=== PATIENT | male | born 1970 ===

== ENCOUNTER 2024-09-13 11:20 | Emergency (ER) | payer SELFPAY ==
[2024-09-13 11:23] VITALS: BP 146/90; PULSE 66; RESP 18; TEMP 36.7; O2SAT 95; BMI 21.3
--- NOTE | 2024-09-13 11:37 | ED_ITS ---
HPI - Extremity Problem 2 General: Chief complaint: Extremity Problem,Nontraumatic Stated complaint: muscle spasms Time Seen by Provider: 09/13/24 11:24 History of Present Illness: 53-year-old male presents the emergency department by EMS. He was at [employer] today and got some muscle spasms in his right calf. He has been having intermittent muscle spasms in both legs for about 1 month. He also states that sometimes his legs tremor. Patient endorses a relevant past medical history of surgery to the left hip and left knee. He had an injury in 2008 of his left knee and has been wearing a hinged knee brace ever since. He has muscle wasting in this area (likely related to chronic use of the knee brace). He does not endorse any sensory changes in his lower extremities. He reports that the event that actually got him here today is the fact that he was stepping over the threshold from the hallway into an elevator and his leg gave out and he fell to his knees. He reports he did not sustain any injury. He does not endorse any trouble with bowel or bladder, fever or chills, immunocompromise, back pain, neurogenic claudication symptoms, temperature changes in the skin, rashes or wounds. Currently patient is endorsing no symptoms. Patient reportedly uses a wheelchair and or a walker at his baseline. He has no known reported neuropathy, spinal stenosis, demyelinating condition. Related Data Home Medications Medication Instructions Recorded Confirmed fluticasone propionate 50 1 spray intranasal DAILY 09/13/24 09/13/24 mcg/actuation nasal spray,suspension loratadine 10 mg tablet 10 mg PO DAILY 09/13/24 09/13/24 medroxyprogesterone 10 mg tablet 10 mg PO TID 09/13/24 09/13/24 paroxetine HCl 30 mg tablet 30 mg PO DAILY 09/13/24 09/13/24 trazodone 100 mg tablet 100 mg PO DAILY 09/13/24 09/13/24 Review of Systems 2 General: Reports: 10 or more systems reviewed and unremarkable except in HPI and below Physical Exam 2 Narrative: EXAM NARRATIVE: Patient is happy, conversational, no acute distress. Examination of his bilateral lower extremities reveals relatively diminished muscle bulk, particularly in the left calf and thigh. He has a well-worn left-sided hinged knee brace that he has worn daily for more than 10 years. Upon removing the knee brace, his left knee exam is unremarkable other than the decreased muscle bulking around it. He has normal ligamentous and tendon exams. There are no effusions redness or warmth. He has normal passive range of motion of his right hip, right knee, right ankle and foot. He has normal passive range of motion of his left hip, left knee, left ankle and foot. He has very brisk patellar reflexes bilaterally but they are symmetric. He also has brisk Achilles reflexes. He has normal sensation to touch in both feet and can plantar and dorsiflex his feet against resistance. His DP pulses 2+ bilaterally. He has no abnormal swelling, effusions, redness or rashes. Pelvis is stable. The spine is nontender throughout the thoracic and lumbar regions. Straight leg raise is negative bilaterally. Const: COMMON NORMALS: no limitations, alert and well nourished EXAM LIMITATIONS: no altered mental status HENMT: COMMON NORMALS: normocephalic, atraumatic and external ears normal H EAD & SCALP: normocephalic and atraumatic EXTERNAL EAR: Yes external ears normal MOUTH: no muffled voice Neck/C-Spine: GENERAL: Yes normal visual inspection and Yes trachea midline Resp: COMMON NORMALS: normal respiratory effort, No use of accessory muscles and clear to auscultation bilaterally AUSCULTATION: clear to auscultation bilaterally Neuro: COMMON NORMALS: moves all extremities, no focal motor deficits and no sensory deficits noted SENSORIUM/ORIENTATION: Yes alert SPEECH: speech normal Psych: COMMON NORMALS: mental status grossly normal, Normal thought process present, cooperative, normal affect and speech normal SPEECH: Yes normal speech THOUGHT PROCESS: Normal thought process present Skin: COMMON NORMALS: no rashes or lesions noted, turgor normal and no jaundice GENERAL SKIN EXAM: no rashes or lesions noted and turgor normal Course 2 Vital Signs: Vital signs: Vital Signs Temperature 98.1 F 09/13/24 11:23 Pulse Rate 66 09/13/24 11:23 Respiratory Rate 18 09/13/24 11:23 Blood Pressure 146/90 09/13/24 11:23 Pulse Oximetry 95 09/13/24 11:23 Oxygen Delivery Me thod Room Air 09/13/24 11:23 MDM - Extremity (Nontraumatic) Medical Decision Making 1. Intermittent muscle cramps. We will check his magnesium, potassium, sodium, chloride, calcium, hemoglobin. 2. The patient's leg giving out on him today is probably secondary to muscle wasting. I am not sure that the patient requires wearing a knee brace daily. His quadricep muscles are both pretty small and I am wondering if this is contributing to his knees feeling like they are going to buckle. I am going to recommend follow-up with PCP to determine whether the knee brace can be removed and whether the patient needs to go to physical therapy. There is no indication for imaging today as there was no traumatic injury or concerning physical exam findings other than what was noted above. Update 12:15 PM I considered spinal stenosis, demyelinating disease, neuropathy, myopathies, and other conditions. However, this appears to be chronic and progressive. I do not think these are a emergency department workup. The patient's electrolytes, kidney function, blood sugar, acid-base status are normal. He can be discharge and follow-up with PCP for outpatient workup Lab Data 09/13/24 11:39 09/13/24 11:39 Laboratory Results WBC 4.73 10^3/uL (3.29-11.43) 09/13/24 11:39 RBC 4.53 10^6/uL (3.85-5.65) 09/13/24 11:39 Hgb 14.00 g/dL (11.27-16.99) 09/13/24 11:39 Hct 41.5 % (37-53) 09/13/24 11:39 MCV 91.6 fl (82-101) 09/13/24 11:39 MCH 30.9 pg (27-33) 09/13/24 11:39 MCHC 33.7 g/dL (30-55) 09/13/24 11:39 RDW 12.4 % (12.1-15.1) 09/13/24 11:39 Plt Count 248 10^3/cmm (157-399) 09/13/24 11:39 MPV 10.1 fL (7.4-10.4) 09/13/24 11:39 Neut % (Auto) 64.0 % 09/13/24 11:39 Lymph % (Auto) 24.7 % 09/13/24 11:39 [place] % (Auto) 8.0 % 09/13/24 11:39 Eos % (Auto) 2.1 % 09/13/24 11:39 Baso % (Auto) 0.8 % 09/13/24 11:39 Neut # (Auto) 3.02 10^3/uL (1.8-7.7) 09/13/24 11:39 Lymph # (Auto) 1.2 10^3/uL (0.8-4.8) 09/13/24 11:39 [place] # (Auto) 0.4 10^3/uL (0.2-0.9) 09/13/24 11:39 Eos # (Auto) 0.1 10^3/uL (0.0-0.8) 09/13/24 11:39 Baso # (Auto) 0.0 10^3/uL (0.0-0.1) 09/13/24 11:39 Nucleated RBC % (auto) 0 % 09/13/24 11:39 Nucleated RBCs # 0.0 /100WBC 09/13/24 11:39 Sodium 139 mmol/L (136-145) 09/13/24 11:39 Potassium 4.0 mmol/L (3.5-5.1) 09/13/24 11:39 Chloride 103 mmol/L (98-107) 09/13/24 11:39 Carbon Dioxide 23 mmol/L (22-29) 09/13/24 11:39 Anion Gap 17.0 (5-19) 09/13/24 11:39 BUN 14 mg/dL (6-20) 09/13/24 11:39 Creatinine 0.9 mg/dL (0.7-1.2) 09/13/24 11:39 GFR Calculation 87.6 mL/min (90-130) L 09/13/24 11:39 Glucose 94 mg/dL (65-115) 09/13/24 11:39 Calculated Osmolality 288 mOsm/kg (285-295) 09/13/24 11:39 Calcium 9.5 mg/dL (8.5-10.5) 09/13/24 11:39 Magnesium 1.9 mg/dL (1.7-2.3) 09/13/24 11:39 Total Bilirubin 0.4 mg/dL (0.15-1.2) 09/13/24 11:39 AST 19 U/L (0-40) 09/13/24 11:39 ALT 6 U/L (0-41) 09/13/24 11:39 Alkaline Phosphatase 47 U/L (40-130) 09/13/24 11:39 Total Protein 7.6 g/dL (6.6-8.7) 09/13/24 11:39 Albumin 4.4 g/dL (3.5-5.2) 09/13/24 11:39 Globulin 3.2 g/dL (1.3-4.6) 09/13/24 11:39 No radiology studies performed this visit Discharge Plan Discharge Patient Disposition: Home Clinical Impression: Muscle atrophy of lower extremity, Knee buckling, Cramp in muscle Condition: Stable Prescriptions: No Action medroxyprogesterone 10 mg tablet 10 mg PO TID trazodone 100 mg tablet 100 mg PO DAILY paroxetine HCl 30 mg tablet 30 mg PO DAILY fluticasone propionate 50 mcg/actuation spray,suspension 1 spray INTRANASAL DAILY loratadine 10 mg Tablet 10 mg PO DAILY Discharge Orders: Discharge ED (Routine); Ordered 09/13/24 Ordered By: Tres Harvey Discharge Activity: Increase activity as tolerated Activity Restrictions/Additional Instructions: Please follow-up with your primary care doctor in 4-7 days. Things I would like you to address with them include: Outpatient imaging to evaluate for any spinal stenosis, physical therapy referral, whether or not you need to continue to use your knee brace, and repeat strength examinations of the lower extremities. Return to the emergency department if you have fever, back pain, trouble urinating or having a bowel movement, swelling, rashes, wounds or other emergent symptoms. Coding Level of Care Code ED Quality Process Auditor for Benja Weiss
[2024-09-13 11:45] LABS: Basophils % 0.8 %; Eosinophils # 0.1 10^3/uL (0.0-0.8); Eosinophils % 2.1 %; Hematocrit 41.5 % (37-53); Lymphocytes # 1.2 10^3/uL (0.8-4.8); Lymphocytes % 24.7 %; Mean Corpuscular HGB Conc 33.7 g/dL (30-55); Mean Corpuscular Hemoglobin 30.9 pg (27-33); Mean Corpuscular Volume 91.6 fl (82-101); Mean Platelet Volume 10.1 fL (7.4-10.4); Monocytes # 0.4 10^3/uL (0.2-0.9); Neutrophils # 3.02 10^3/uL (1.8-7.7); Nucleated Red Blood Cells % 0 %; Platelet Count 248 10^3/cmm (157-399); Red Blood Count 4.53 10^6/uL (3.85-5.65); Red Cell Distribution Width 12.4 % (12.1-15.1); White Blood Count 4.73 10^3/uL (3.29-11.43)
[2024-09-13 12:00] LABS: Alanine Aminotransferase 6 U/L (0-41); Albumin Level 4.4 g/dL (3.5-5.2); Alkaline Phosphatase 47 U/L (40-130); Aspartate Amino Transferase 19 U/L (0-40); Blood Urea Nitrogen 14 mg/dL (6-20); Calcium 9.5 mg/dL (8.5-10.5); Carbon Dioxide 23 mmol/L (22-29); Chloride 103 mmol/L (98-107); Creatinine Clr Calc Pharmacy 95.6775; Globulin 3.2 g/dL (1.3-4.6); Glomerular Filtration Rate 87.6 mL/min (90-130); Glucose 94 mg/dL (65-115); Magnesium 1.9 mg/dL (1.7-2.3); Osmolality Calculated 288 mOsm/kg (285-295); Sodium 139 mmol/L (136-145); Total Bilirubin 0.4 mg/dL (0.15-1.2); Total Protein 7.6 g/dL (6.6-8.7)
--- NOTE | 2024-09-13 12:43 | PC.NURSE ---
REPORT CALLED BACK TO [employer]. THIS NURSE WAS TOLD BY [employer] EMPLOYEE THAT SOMEONE WOULD BE COMING TO COO PATIENT.
[2024-09-13 12:51] VITALS: BP 153/99; PULSE 76; O2SAT 99
== END 2024-09-13 12:53 | disposition home or self-care (01) ==
PROVIDERS: Emergency Provider Emergency Medicine
DX: M62.562 Muscle wasting and atrophy, not elsewhere classified, left lower leg (principal)
CPT/HCPCS: 80053; 83735; 85025; 99283

== ENCOUNTER → 2025-04-09 08:47 | Outpatient (BNVA) | payer MEDICAID, SELFPAY | PROVIDERS: PCP Internal Medicine; Visit Provider Orthopaedic Surgery | DX: M25.552 Pain in left hip (principal); T84.84XA Pain due to internal orthopedic prosthetic devices, implants and grafts, initial encounter; Y79.3 Surgical instruments, materials and orthopedic devices (including sutures) associated with adverse incidents | CPT/HCPCS: 73502; 99204 ==

== ENCOUNTER 2025-06-03 17:32 | Emergency (ER) | payer MEDICARE, MEDICAID, SELFPAY ==
[2025-06-03 17:34] VITALS: BP 193/115; PULSE 70; RESP 18; TEMP 37.1; O2SAT 98; BMI 21.4
--- NOTE | 2025-06-03 18:36 | W.ED.EXTPRO ---
HPI - Extremity Problem General: Chief complaint: Extremity Injury, Lower Stated complaint: leg muscle spasms Time Seen by Provider: 06/03/25 17:37 History of Present Illness: 54-year-old male history of chronic hip pain after a left hip surgery, reports being evaluated by orthopedics who suspects that the lag screw from his hip surgery is causing nerve damage, eventually pending possible revision/removal of the screw however orthopedics is currently waiting for outpatient surgical records to be obtained for planning. He reports that he has a history of chronic pain to the left hip and that he gets occasional spasms but that today he had an episode of whole left leg spasming that made him lose his balance, and then generalized to his both legs and his entire body, he did not lose consciousness, he did not hit his head, he denies headaches, he denies fevers or chills. He reports that he is adopted and does not know anything about his family so is unsure if he has any family history of neuromuscular disease, Parkinson's, [place], or other chronic medical issues. He denies any other medical issues, he denies alcohol use, denies drug use, denies excessive caffeine intake Related Data Home Medications ?Medication ?Instructions ?Recorded ?Confirmed fluticasone propionate 50 1 spray intranasal DAILY 09/13/24 04/09/25 mcg/actuation nasal spray,suspension loratadine 10 mg tablet 10 mg PO DAILY 09/13/24 04/09/25 medroxyprogesterone 10 mg tablet 10 mg PO TID 09/13/24 04/09/25 paroxetine HCl 30 mg tablet 30 mg PO DAILY 09/13/24 04/09/25 trazodone 100 mg tablet 100 mg PO DAILY 09/13/24 04/09/25 Previous Rx's ?Medication ?Instructions ?Recorded baclofen 10 mg tablet 10 mg PO TID PRN muscle spasm 7 06/03/25 days #21 tabs Allergies Allergy/AdvReac Type Severity Reaction Status Date / Time Penicillins Allergy Unknown Verified 04/09/25 09:10 [facility] ED PFSH: Medical History Psychiatric care Social History Smoking and tobacco/nicotine status: never used tobacco/nicotine Second hand smoke exposure: Yes Alcohol intake: current Alcohol intake frequency: few times a month Alcohol type: beer Adopted: Yes Caregiver/support person: Yes Lives independently: Yes Housing: Assisted Living Facility Marital status: Single Marital status details: engaged Number of children: 0 service: No Current occupational status: disabled Physical Exam Narrative: EXAM NARRATIVE: Gen: A&Ox4, no acute distress, nontoxic appearing HEENT: Normocephalic, atraumatic, no scleral icterus, external ears normal, moist mucous membranes Neck: Supple, full range of motion, no observable masses Lungs: No Respiratory distress, Lungs clear to auscultation bilaterally no rales, rhonchi, wheezing CV: Regular rate and rhythm, no murmur, no pitting edema to lower extremities bilaterally Abdomen: Soft, nondistended, nontender to palpation MSK: No joint swelling, FROM all 4 extremities Skin: No rashes, petechiae, lesions. Normal color per patient. Neuro: Alert and oriented, no slurred speech, sensation and strength grossly intact all 4 extremities Psych: Appropriate for situation. Course Vital Signs: Vital signs: Vital Signs Temperature 98.7 F 06/03/25 17:34 Pulse Rate 70 06/03/25 17:34 Respiratory Rate 18 06/03/25 17:34 Blood Pressure 193/115 06/03/25 17:34 Pulse Oximetry 98 06/03/25 17:34 Oxygen Delivery Me thod Room Air 06/03/25 17:34 MDM - Extremity (Nontraumatic) Medical Decision Making 54-year-old male history of left hip pain with surgery that has caused some nerve damage to the left hip per orthopedic chart review and is pending eventual removal of the lag screw, presenting to the emergency department with whole body spasming, currently no spasming visible in the ER, clinically inconsistent with seizure disorder given patient had generalization of the symptoms throughout his body but did not loss consciousness, no known family medical history available given patient is adopted and does not know his family, he does not have evidence of alcohol withdrawal and denies any alcohol abuse, he has markedly elevated blood pressure on arrival without a pre-existing history of hypertension per him, symptoms not consistent with hypertensive emergency, patient not encephalopathic or altered, plan to obtain basic labs, trial of baclofen, reassess for disposition but anticipate recommending follow-up with PCP for blood pressure recheck, orthopedic surgery for his chronic hip issues. Lab Data Labs showing mild acidosis unclear etiology, no leukocytosis, no anemia, no significant electrolyte derangements, normal kidney function 06/03/25 17:37 06/03/25 17:37 Laboratory Results WBC 6.18 10^3/uL (3.29-11.43) 06/03/25 17:37 RBC 4.40 10^6/uL (3.85-5.65) 06/03/25 17:37 Hgb 13.20 g/dL (11.27-16.99) 06/03/25 17:37 Hct 40.1 % (37-53) 06/03/25 17:37 MCV 91.1 fl (82-101) 06/03/25 17:37 MCH 30.0 pg (27-33) 06/03/25 17:37 MCHC 32.9 g/dL (30-55) 06/03/25 17:37 RDW 12.8 % (12.1-15.1) 06/03/25 17:37 Plt Count 302 10^3/cmm (157-399) 06/03/25 17:37 MPV 10.9 fL (7.4-10.4) H 06/03/25 17:37 Neut % (Auto) 59.5 % 06/03/25 17:37 Lymph % (Auto) 26.9 % 06/03/25 17:37 [place] % (Auto) 8.6 % 06/03/25 17:37 Eos % (Auto) 3.9 % 06/03/25 17:37 Baso % (Auto) 0.8 % 06/03/25 17:37 Neut # (Auto) 3.68 10^3/uL (1.8-7.7) 06/03/25 17:37 Lymph # (Auto) 1.7 10^3/uL (0.8-4.8) 06/03/25 17:37 [place] # (Auto) 0.5 10^3/uL (0.2-0.9) 06/03/25 17:37 Eos # (Auto) 0.2 10^3/uL (0.0-0.8) 06/03/25 17:37 Baso # (Auto) 0.1 10^3/uL (0.0-0.1) 06/03/25 17:37 Nucleated RBC % (auto) 0 % 06/03/25 17:37 Nucleated RBCs # 0.0 /100WBC 06/03/25 17:37 Sodium 138 mmol/L (136-145) 06/03/25 17:37 Potassium 3.6 mmol/L (3.5-5.1) 06/03/25 17:37 Chloride 103 mmol/L (98-107) 06/03/25 17:37 Carbon Dioxide 18 mmol/L (22-29) L 06/03/25 17:37 Anion Gap 20.6 (5-19) H 06/03/25 17:37 BUN 17 mg/dL (6-20) 06/03/25 17:37 Creatinine 0.9 mg/dL (0.7-1.2) 06/03/25 17:37 GFR Calculation 87.3 mL/min (90-130) L 06/03/25 17:37 Glucose 89 mg/dL (65-115) 06/03/25 17:37 Calculated Osmolality 287 mOsm/kg (285-295) 06/03/25 17:37 Calcium 9.4 mg/dL (8.5-10.5) 06/03/25 17:37 Magnesium 2.1 mg/dL (1.7-2.3) 06/03/25 17:37 No radiology studies performed this visit Discharge Plan Discharge Patient Disposition: Home Clinical Impression: Spasm Condition: Stable Prescriptions: New baclofen 10 mg tablet 10 mg PO TID PRN (Reason: muscle spasm) 7 Days Qty: 21 0RF No Action medroxyprogesterone 10 mg tablet 10 mg PO TID trazodone 100 mg tablet 100 mg PO DAILY paroxetine HCl 30 mg tablet 30 mg PO DAILY fluticasone propionate 50 mcg/actuation spray,suspension 1 spray INTRANASAL DAILY loratadine 10 mg Tablet 10 mg PO DAILY Discharge Orders: Discharge ED (Routine); Ordered 06/03/25 Ordered By: Chai Blanco Referrals: Jagjit Neely DO [Primary Care Provider, Internal Medicine] Patient Instructions: Baclofen (By mouth), Muscle Spasm (ED), Patient Portal & [facility] Instructions Print Language: Albanian Coding Level of Care Code ED Journeyman Level Acoustic Analyst for [facility] Isela
[2025-06-03 18:47] LABS: Hematocrit 40.1 % (37-53); Hemoglobin 13.20 g/dL (11.27-16.99); Mean Corpuscular HGB Conc 32.9 g/dL (30-55); Mean Corpuscular Hemoglobin 30.0 pg (27-33); Mean Corpuscular Volume 91.1 fl (82-101); Nucleated Red Blood Cells % 0 %; Platelet Count 302 10^3/cmm (157-399); Red Blood Count 4.40 10^6/uL (3.85-5.65); White Blood Count 6.18 10^3/uL (3.29-11.43)
[2025-06-03 19:11] LABS: Anion Gap 20.6 (5-19); Blood Urea Nitrogen 17 mg/dL (6-20); Calcium 9.4 mg/dL (8.5-10.5); Carbon Dioxide 18 mmol/L (22-29); Chloride 103 mmol/L (98-107); Creatinine Clr Calc Pharmacy 94.7867; Glucose 89 mg/dL (65-115); Magnesium 2.1 mg/dL (1.7-2.3); Osmolality Calculated 287 mOsm/kg (285-295); Potassium 3.6 mmol/L (3.5-5.1); Sodium 138 mmol/L (136-145)
== END 2025-06-03 20:27 | disposition home or self-care (01) ==
PROVIDERS: Emergency Provider Student in an Organized Health Care Education/Training Program; PCP Internal Medicine
DX: M62.838 Other muscle spasm (principal)
CPT/HCPCS: 80048; 83735; 85025; 99283; J9999

== ENCOUNTER 2025-08-29 10:38 | Emergency (ER) | payer MEDICARE, MEDICAID, SELFPAY ==
[2025-08-29 10:39] VITALS: BP 147/88; PULSE 76; RESP 18; TEMP 36.6; O2SAT 98; BMI 20.9
--- OUTSIDE RECORDS SUMMARY | 2025-08-29 10:44 | XMS_ITS | Continuity of Care Document ---
Author Organization [facility] [place], Ar[place], [facility] ([facility]) Address [address] [place] [address] Assessment No assessment recorded. Plan of Treatment Reminders Order Date Submit Date Provider Last Modified By Organization Details Last Modified Time Details Appointments None record ed. Lab None record ed. Referral None record ed. Procedures None record ed. Surgeries None record ed. Imaging None record ed. Medication Orders None record ed. Patient TargetsNo targets recorded. Patient Instructions Encounter Date Encounter Id Patient Instructions Last Modified By Organization Details Last Modified Time 06/07/2025 [id number] Will refer to ortho and start therapy for right leg pain. Does complain of heartburn, will start 20mg of omeprazole. [email or web address] Not available 06/07/2025 16:53:17 Reason for Referral None Reported. Problems Name Problem SNOMED Code Status Onset Date Resolution Date Notes Provider Name and Address Organization Details Recorded Time Persistent insomnia 488346182 [facility]24 [facility] 13[facility]29:08 Pain of multiple joints 13588869 Active 2024 [facility] 13:29:18 Heartburn 57492856 Active 2024 [facility] 16:53:28 Problem Notes None recorded. Medical Equipment None Reported. Medications Name Sig Start Date Stop Date Status Note LastModified by Organization Details LastModified Time medroxyprogesterone 10 mg tablet active Not Available Not Available Not Available albuterol sulfate 2.5 mg/3 mL (0.083 %) solution for nebulization active Not Available Not Available Not Available medroxyprogesterone 5 mg tablet active Not Available Not Available Not Available trazodone 100 mg tablet active Not Available Not Available Not Available paroxetine 30 mg tablet active Not Available Not Available Not Available oseltamivir 75 mg capsule active Not Available Not Available Not Available fluticasone propionate 50 mcg/actuation nasal spray,suspension active Not Available Not Avail able Not Available Vitals None Recorded Social History None recorded. Functional Status None recorded. Mental Status None recorded. Family History Nothing Reported. Medical History No medical history recorded. Immunizations Vaccine Type Date Status Note Provider Nam e and Address Organization Details Recorded Time Influenza, MDCK, trivalent, PF 07/15/2024 completed Not Available [facility] 2024 11:53:28 Past Encounters Encounter ID Performer Location Encounter Start Date Encounter Closed Date Diagnosis/Indication Diagnosis SNOMED-CT Code Diagnosis ICD10 Code Diagnosis IMO Codes Diagnosis Note [id number] Jagjit Neely DO [facility] ([facility]) [address] [place] [address] 06/07/2025 11:53:13 06/09/2025 10:42:48 Persistent insomnia 132078699 G47.09 Pain of mu ltiple joints 11612529 M25.50 Heartburn 25514045 R12 28631 Health Concerns Section Related Observation LastModified by Organization Detai ls LastModified Time None Recorded Concern Status LastModified by Organization Details LastModified Time None Recorded Payers Encounter Date Sequence Insurance Name Policy Number Policy Morales Covered Member ID Morales Member ID Guarantor Name 06/07/2025 1 [employer] (MEDICARE REPLACEMENT/ ADVANTAGE - PPO) Castro Maldonado [id number] Castro Maldonado Notes Date Note Type Note Provider Name and Address Organization Details Recorded Time 5 text/html Care Management - GeneralReported by PatientHPIFor prognosis, patient reportsexpected outcome: no change. For lifestyle changes, patient reportsmotivated to continue lifestyle changesandexercises regularly.ROS as noted in the HPI no issues per staff or pt. Jagjit Neely DO [address] [place] [address], [id number] 06/08/2025 15:06:42
--- OUTSIDE RECORDS SUMMARY | 2025-08-29 10:44 | XMS_ITS | Data Portability ---
Author Organization [facility], [facility] Address [facility] [address] [address] Assessment No assessment recorded. Plan of Treatment [...] Modified By Organization Details Last Modified Time 2024 [id number] Frequent right hip pain, discussed slowing down and taking time walking places. Agrees to try. Mood good. [email or web address] Not available 2024 13:30:36 12/14/2024 [id number] Annual H&P injured left thumb a few weeks ago while holding hands with fiancee. will get xray. [email or web address] Not available 12/14/2024 16:06:09 03/08/2025 [id number] Will need new knee brace with hinge. He will also need to see ortho for left hip pain. doing well other de leon. Not available 03/08/2025 15:01:16 06/07/2025 [id number] Will refer to ortho and start therapy for right leg pain. Does complain of heartburn, will start 20mg of omeprazole. [email or web address] Not available 06/07/2025 16:53:17 Reason for Referral None Reported. Problems Name Problem SNOMED Code Status Onset Date Resolution Date Notes Provider Name and Address Organization Details Recorded Time Persistent insomnia 330270173 Active 2024 CATIE cerna MA Agueda [facility], [place] 13:29:08 Pain of multiple joints 53742358 Active [address] [facility], [place] 13:29:18 Heartburn 46131170 Active [address] [facility], [place] 16:53:28 Problem Notes None recorded. Medical Equipment [...] MDCK, trivalent, PF 07/15/2024 completed Not Available [facility] 2024 11:53:28 Past Encounters Encounter ID Performer Location Encounter Start Date Encounter Closed Date Diagnosis/Indication Diagnosis SNOMED-CT Code Diagnosis ICD10 Code Diagnosis IMO Codes Diagnosis Note [id number] Jagjit Neely DO [facility]) [address] [place] [phone] 2024 08:14:13 10/15/2024 12:29:11 Persistent insomnia 611347640 G47.09 Pain of mu ltiple joints 30805594 M25.50 [id number] Jagjit Neely DO [facility] [address] [place] [phone] 12/14/2024 07:57:14 12/15/2024 15:50:04 Persistent insomnia 334778210 G47.09 Pain of mu ltiple joints 03680812 M25.50 Pain in left thumb 57714 82232 750201 M79.308 [id number] Jagjit NeelyDO [facility] ([facility]) [address] [place] [address] 03/08/2025 13:39:28 03/10/2025 12:59:24 Persistent insomnia 071919119 G47.09 Pain of mu ltiple joints 19672215 M25.50 Pain of hip region 34537 002 M25.552 [id number] Jagjit NeelyDO [facility] ([facility]) [address] [place] [address] 06/07/2025 11:53:13 06/09/2025 10:42:48 Persistent insomnia 652755639 G47.09 Pain of mu ltiple joints 87123718 M25.50 Heartburn 57674654 R12 00837 Health Concerns Section Related Observation LastModified by Organization Detai ls LastModified Time None Recorded Concern Status LastModified by Organization Details LastModified Time None Recorded Advance Directives Directive None Recorded Payers Insurance Date Sequence Insurance Name Policy Number Policy Morales Covered Member ID Morales Member ID Guarantor Name 06/07/2025 1 [employer] (MEDICARE REPLACEMENT/ ADVANTAGE - PPO) Castro Maldonado [id number] Castro Maldonado Notes Date Note Type Note Provider Name and Address Organization Details Recorded Time 5 text/html Care Management - GeneralReported by PatientHPIFor prognosis, patient reportsexpected outcome: no change. For lifestyle changes, patient reportsmotivated to continue lifestyle changesandexercises regularly.ROS as noted in the [facility] Jagjit Neely DO [address] [place] [address], [phone], [facility] 2024 16:03:32 5 text/html Care Management - GeneralReported by PatientHPIFor prognosis, patient reportsexpected outcome: no change. For lifestyle changes, patient reportsmotivated to continue lifestyle changesandexercises regularly.ROS as noted in the [facility] Jagjit Neely DO [address] [place] [address], [phone], [facility] 12/14/2024 17:03:22 5 text/html Care Management - GeneralReported by PatientHPIFor prognosis, patient reportsexpected outcome: no change. For lifestyle changes, patient reportsmotivated to continue lifestyle changesandexercises regularly.ROS as noted in the HPI no issues per staff or pt. Jagjit Neely DO [address] [place] [address], [phone], [facility], [place] 03/08/2025 15:05:37 5 text/html Care Management - GeneralReported by [facility] prognosis, patient reportsexpected outcome: no change. For lifestyle changes, patient reportsmotivated to continue lifestyle changesandexercises regularly.ROS as noted in the HPI no issues per staff or pt. Jagjit Neely DO [address] [place] [address], [phone], [facility] 06/08/2025 15:06:42
--- NOTE | 2025-08-29 10:46 | CTR_ITS ---
PROCEDURE INFORMATION: Exam: CT Abdomen And Pelvis With Contrast Exam date and time: 08/29/2025 11:22 AM Age: 54 years old Clinical indication: Abdominal pain; Localized; Right lower quadrant (rlq); Prior surgery; Surgery date: 6+ months; Surgery type: HX of inguinal hernia; Additional info: Rlq pain, HX of inguinal hernia repair TECHNIQUE: Imaging protocol: Computed tomography of the abdomen and pelvis with contrast. Radiation optimization: All CT scans at this facility use at least one of these dose optimization techniques: automated exposure control; mA and/or kV adjustment per patient size (includes targeted exams where dose is matched to clinical indication); or iterative reconstruction. Contrast material: OMNIPAQUE 350; Contrast volume: 100 ml; Contrast route: INTRAVENOUS (IV); COMPARISON: CR XR hip LT 2-3V wo/w pel* [id number] 04/09/2025 8:49 AM RADIATION DOSE METRICS: Total DLP (mGy-cm): 414.2 FINDINGS: Liver: Normal. No mass. Gallbladder and biliary ducts: Normal. No calcified stones. No ductal dilation. Pancreas: Normal. No ductal dilation. Spleen: Normal. No splenomegaly. Adrenal glands: Normal. No mass. Kidneys and ureters: Normal. No hydronephrosis. Stomach and bowel: Unremarkable. No obstruction. No mucosal thickening. Appendix: No evidence of appendicitis. Intraperitoneal space: Trace free fluid is noted in the pelvis. Vasculature: Unremarkable. No abdominal aortic aneurysm. Lymph nodes: Unremarkable. No enlarged lymph nodes. Urinary bladder: Unremarkable as visualized. Reproductive: Unremarkable as visualized. Bones/joints: Status post left femoral pin and margo. Soft tissues: Very small umbilical hernia containing fat. Ground-glass opacity in the left lower lobe on the superior most image as well as a few punctate clustered nodules in the region. 4.5 mm right lower lobe pulmonary nodule. 4 mm ground-glass nodule in the left lower lobe. CT/CT abdomen pelvis w con* [id number] IMPRESSION: 1. Trace free fluid in the pelvis which is abnormal but nonspecific. 2. Pulmonary nodules and ground-glass opacity at the lung bases. Consider dedicated chest CT.
--- NOTE | 2025-08-29 10:49 | W.ED.ABDPA2 ---
HPI - Abdominal Pain General: Chief Complaint: Abdominal Pain Stated Complaint: groin pain Time Seen by Provider: 08/29/25 10:40 Source: patient Mode of arrival: EMS Limitations: no limitations History of Present Illness: Patient is a 54-year-old male presents emergency department by ambulance from [place] for pain in the abdomen. History of hernia surgery 20 years ago for left inguinal hernia where he had mesh placed, states this pain is similar but is just on the right side. Pain radiates into the groin but not testicular and he is not reporting any testicle pain or swelling. No urinary symptoms. He is not endorsing any fever nausea or vomiting. States that the pain was felt a couple of days ago but went away, he thought it was just gas but today after eating breakfast at about 0530 the pain came on again. He notes it is severe at this time, specifically reproducible by palpation and he has not noticed any other specific alleviating or exacerbating factors. His vitals are stable at this time. Has been having normal bowel movements. MD elicited complaint: abdominal pain Pertinent past history: other (Left inguinal hernia) Onset (ago): hour(s) Pain Consistency: constant Location: RLQ and Groin Severity: similar to previous episodes Associated Symptoms: Denies bloating, change in stool character, chills, constipation, diarrhea, dysuria, fever(s), hematochezia, nausea and vomiting Related Data Home Medications ?Medication ?Instructions ?Recorded ?Confirmed fluticasone propionate 50 1 spray intranasal DAILY 09/13/24 04/09/25 mcg/actuation nasal spray,suspension loratadine 10 mg tablet 10 mg PO DAILY 09/13/24 04/09/25 medroxyprogesterone 10 mg tablet 10 mg PO TID 09/13/24 04/09/25 paroxetine HCl 30 mg tablet 30 mg PO DAILY 09/13/24 04/09/25 trazodone 100 mg tablet 100 mg PO DAILY 09/13/24 04/09/25 Allergies Allergy/AdvReac Type Severity Reaction Status Date / Time Penicillins Allergy Unknown Verified 08/29/25 10:47 Review of Systems General: Reports: 10 or more systems reviewed and unremarkable except in HPI and below Const: Denies: fever(s), chills, change in appetite, change in weight or diaphoresis ENMT: Denies: throat pain or hoarseness Card: Denies: chest pain, palpitations or lightheadedness Resp: Denies: dyspnea, productive cough or wheezing GI: Reports: abdominal pain; Denies: nausea, vomiting, diarrhea, constipation, bloating, change in stool character or hematochezia : Denies: flank pain, difficulty urinating, dysuria, urinary frequency or urinary urgency Musc: Denies: neck pain or back pain Skin/Breast: Denies: rash or new lesions Neuro: Denies: headache(s) or dizziness PFSH ED PFSH: Medical History Psychiatric care Social History Smoking and tobacco/nicotine status: never used tobacco/nicotine Second hand smoke exposure: Yes Alcohol intake: current Alcohol intake frequency: few times a month Alcohol type: beer Adopted: Yes Caregiver/support person: Yes Lives independently: Yes Housing: Assisted Living Facility Marital status: Single Marital status details: engaged Number of children: 0 service: No Current occupational status: disabled Physical Exam Const: COMMON NORMALS: no acute distress, average body habitus, patient oriented x3, no limitations, healthy appearing, alert and well nourished GENERAL APPEARANCE: cooperative and comfortable ORIENTATION/CONSCIOUSNESS: Yes awake Neck/C-Spine: COMMON NORMALS: full ROM, supple and no meningeal signs Resp: COMMON NORMALS: normal respiratory effort, No retractions, No use of accessory muscles and clear to auscultation bilaterally AUSCULTATION: clear to auscultation bilaterally, no crackles, no rales, no rhonchi and no wheezes Cardio: COMMON NORMALS: regular rate, regular rhythm, No gallops present (Cardio), No clicks present (Cardio), No murmurs present (Cardio), No rub (Cardio) and Peripheral pulses 2+ throughout RATE: regular rate RHYTHM: regular rhythm PERIPHERAL PULSES: Peripheral pulses 2+ throughout GI: COMMON NORMALS: Soft to palpation, No hepatosplenomegaly present and no masses AUSCULTATION: Yes normoactive bowel sounds PALPATION: Yes Soft to palpation, Yes Tenderness to palpation present (GI) Details: RLQ and Yes No hepatosplenomegaly present RECTAL EXAM: Yes deferred OTHER: Umbilical hernia Extremity: COMMON NORMALS: normal to inspection and full ROM Neuro: COMMON NORMALS: patient oriented x3, moves all extremities, no focal motor deficits and no sensory deficits noted SENSORIUM/ORIENTATION: Yes alert MENINGEAL SIGNS: Yes no meningeal signs Psych: COMMON NORMALS: mental status grossly normal, cooperative and speech normal SPEECH: Yes normal speech Skin: COMMON NORMALS: no rashes or lesions noted GENERAL SKIN EXAM: no rashes or lesions noted Course Vital Signs: Vital signs: Vital Signs Temperature 97.8 F 08/29/25 10:39 Pulse Rate 76 08/29/25 10:39 Respiratory Rate 20 H 08/29/25 11:17 Blood Pressure 147/88 08/29/25 10:39 Pulse Oximetry 100 08/29/25 11:17 Oxygen Delivery Me thod Room Air 08/29/25 10:39 MDM - Abdominal Pain Medical Decision Making Patient presented by ambulance for evaluation of right lower abdomen and groin pain. Compared the pain to history of left inguinal hernia requiring mesh repair, he had noted to me this was a couple decades ago. No other associated symptoms. Tender to palpation to the right lower quadrant/groin area there was no appreciable incarcerated hernia or strangulated hernia, did have an umbilical hernia but uncomplicated and nontender at this area. CT abdomen pelvis is not showing any acute surgical abnormality. His blood work is all reassuring including normal urinalysis. Suspect musculoskeletal pain versus other benign etiology there is no acute emergency and he is not requiring any surgery or admission at this time. He notes relief of symptoms with medications here in the ED he will return if he gets worse but will ultimately follow-up with primary care. Lab Data 08/29/25 10:50 08/29/25 10:50 Labs/Radiology: Radiology Impressions Abdomen/Pelvis CT 08/29/25 10:46 IMPRESSION: 1. Trace free fluid in the pelvis which is abnormal but nonspecific. 2. Pulmonary nodules and ground-glass opacity at the lung bases. Consider dedicated chest CT. Laboratory Results WBC 7.30 10^3/uL (3.29-11.43) 08/29/25 10:50 RBC 4.45 10^6/uL (3.85-5.65) 08/29/25 10:50 Hgb 13.10 g/dL (11.27-16.99) 08/29/25 10:50 Hct 40.3 % (37-53) 08/29/25 10:50 MCV 90.6 fl (82-101) 08/29/25 10:50 MCH 29.4 pg (27-33) 08/29/25 10:50 MCHC 32.5 g/dL (30-55) 08/29/25 10:50 RDW 13.2 % (12.1-15.1) 08/29/25 10:50 Plt Count 229 10^3/cmm (157-399) 08/29/25 10:50 MPV 9.9 fL (7.4-10.4) 08/29/25 10:50 Neut % (Auto) 68.7 % 08/29/25 10:50 Lymph % (Auto) 18.9 % 08/29/25 10:50 Pierce % (Auto) 8.9 % 08/29/25 10:50 Eos % (Auto) 2.3 % 08/29/25 10:50 Baso % (Auto) 0.8 % 08/29/25 10:50 Neut # (Auto) 5.01 10^3/uL (1.8-7.7) 08/29/25 10:50 Lymph # (Auto) 1.4 10^3/uL (0.8-4.8) 08/29/25 10:50 Pierce # (Auto) 0.7 10^3/uL (0.2-0.9) 08/29/25 10:50 Eos # (Auto) 0.2 10^3/uL (0.0-0.8) 08/29/25 10:50 Baso # (Auto) 0.1 10^3/uL (0.0-0.1) 08/29/25 10:50 Nucleated RBC % (auto) 0 % 08/29/25 10:50 Nucleated RBCs # 0.0 /100WBC 08/29/25 10:50 Sodium 137 mmol/L (136-145) 08/29/25 10:50 Potassium 3.8 mmol/L (3.5-5.1) 08/29/25 10:50 Chloride 102 mmol/L (98-107) 08/29/25 10:50 Carbon Dioxide 21 mmol/L (22-29) L 08/29/25 10:50 Anion Gap 17.8 (5-19) 08/29/25 10:50 BUN 9 mg/dL (6-20) 08/29/25 10:50 Creatinine 1.1 mg/dL (0.7-1.2) 08/29/25 10:50 GFR Calculation 69.2 mL/min (90-130) L 08/29/25 10:50 Glucose 101 mg/dL (65-115) 08/29/25 10:50 Calculated Osmolality 283 mOsm/kg (285-295) L 08/29/25 10:50 Calcium 9.1 mg/dL (8.5-10.5) 08/29/25 10:50 Total Bilirubin 0.5 mg/dL (0.15-1.2) 08/29/25 10:50 AST 18 U/L (0-40) 08/29/25 10:50 ALT 11 U/L (0-41) 08/29/25 10:50 Alkaline Phosphatase 63 U/L (40-130) 08/29/25 10:50 Total Protein 7.8 g/dL (6.6-8.7) 08/29/25 10:50 Albumin 4.2 g/dL (3.5-5.2) 08/29/25 10:50 Globulin 3.6 g/dL (1.3-4.6) 08/29/25 10:50 Lipase 29 U/L (13-60) 08/29/25 10:50 Urine Color Yellow (Yellow) 08/29/25 11:19 Urine Appearance Clear (CLEAR) 08/29/25 11:19 Urine pH >=9.0 (5-7) A 08/29/25 11:19 Ur Specific [place] 1.018 (1.005-1.030) 08/29/25 11:19 Urine Protein 1+ (Negative) A 08/29/25 11:19 Urine Glucose (UA) Negative (Normal) 08/29/25 11:19 Urine Ketones Trace (Negative) 08/29/25 11:19 Urine Blood Negative (Negative) 08/29/25 11:19 Urine Nitrate Negative (Negative) 08/29/25 11:19 Urine Bilirubin Negative (Negative) 08/29/25 11:19 Urine Urobilinogen 1.0 mg/dL (Negative) 08/29/25 11:19 Ur Leukocyte Esterase Negative (Negative) 08/29/25 11:19 Urine RBC 6-10 /hpf (0-2) 08/29/25 11:19 Urine WBC 0-5 /hpf (0-5) 08/29/25 11:19 Ur Squamous Epith Cells 0-5 /hpf (0-5) 08/29/25 11:19 Amorphous Sediment Not Reportable 08/29/25 11:19 Urine Bacteria None seen /hpf (NONE) 08/29/25 11:19 Hyaline Casts 0-4 /lpf H 08/29/25 11:19 All radiology interpretation(s) finalized by discharge Discharge Plan Discharge Patient Disposition: Home Clinical Impression: Abdominal pain Qualifiers: Abdominal location: unspecified location Qualified Code(s): R10.9 - Unspecified abdominal pain Condition: Stable Prescriptions: No Action medroxyprogesterone 10 mg tablet 10 mg PO TID trazodone 100 mg tablet 100 mg PO DAILY paroxetine HCl 30 mg tablet 30 mg PO DAILY fluticasone propionate 50 mcg/actuation spray,suspension 1 spray INTRANASAL DAILY loratadine 10 mg Tablet 10 mg PO DAILY Discharge Orders: Discharge ED (Routine); Ordered 08/29/25 Ordered By: Jason Major Referrals: Jagjit Neely DO [Primary Care Provider, Internal Medicine] Patient Instructions: Patient Portal & Gela Instructions Activity Restrictions/Additional Instructions: Discharge Instructions Diagnosis: Benign right lower abdominal pain, likely musculoskeletal in origin, with possible relation to known hernia What happened during your visit: Your CT scan and laboratory tests did not show any serious problems that require immediate treatment. The pain you are experiencing is most likely related to muscle or tissue strain in your abdominal wall, possibly related to your known hernia. What to do at home: Pain Management: - Take kpbe-phm-dduwejn pain relievers such as ibuprofen (Advil, Motrin) 400-600 mg every 6-8 hours as needed, or naproxen (Aleve) 220-440 mg every 8-12 hours as needed. Take with food to protect your stomach. - Acetaminophen (Tylenol) 650-1000 mg every 6 hours as needed is an alternative if you cannot take NSAIDs. - Rest from strenuous activities for 2-8 weeks, especially activities that worsen your pain. Activity Modifications: - Avoid heavy lifting, straining, and vigorous exercise until your pain improves - You may gradually return to normal activities as tolerated - Pain that worsens with activity and improves with rest is common with musculoskeletal causes Physical Therapy: If your pain continues beyond 2-4 weeks, physical therapy focusing on core strengthening and flexibility may be helpful. This has been shown to be effective for groin and abdominal wall pain. Follow-up Care: - Schedule an appointment with your primary care doctor within 1-2 weeks - Your doctor may recommend imaging of your hernia or referral to a surgeon if symptoms persist - If pain continues for more than 2 months despite conservative treatment, further evaluation may be needed When to return to the Emergency Department immediately: - Sudden, severe abdominal pain that is much worse than what you experienced today - Fever over 100.4?F (38?C) - Persistent vomiting or inability to keep down fluids - A visible bulge in your groin or abdomen that becomes painful, red, or cannot be pushed back in - Blood in your stool or vomit - Inability to pass gas or have a bowel movement - Dizziness, fainting, or feeling like you might pass out Additional Information: Most cases of musculoskeletal abdominal pain improve with rest and iyyt-vea-wwhlpov pain medication. However, if you develop new symptoms or your pain pattern changes significantly, seek medical attention. Your known hernia should be monitored, and if it becomes painful or you notice a new bulge, contact your doctor promptly. Print Language: Cymraes Coding Level of Care Code ED [employer]ellite Installation Technician for Benja Weiss
[2025-08-29 10:54] LABS: Hematocrit 40.3 % (37-53); Hemoglobin 13.10 g/dL (11.27-16.99); Mean Corpuscular HGB Conc 32.5 g/dL (30-55); Mean Corpuscular Hemoglobin 29.4 pg (27-33); Mean Corpuscular Volume 90.6 fl (82-101); Nucleated Red Blood Cells % 0 %; Platelet Count 229 10^3/cmm (157-399); Red Blood Count 4.45 10^6/uL (3.85-5.65); White Blood Count 7.30 10^3/uL (3.29-11.43)
[2025-08-29 11:15] LABS: Alanine Aminotransferase 11 U/L (0-41); Albumin Level 4.2 g/dL (3.5-5.2); Alkaline Phosphatase 63 U/L (40-130); Anion Gap 17.8 (5-19); Aspartate Amino Transferase 18 U/L (0-40); Blood Urea Nitrogen 9 mg/dL (6-20); Calcium 9.1 mg/dL (8.5-10.5); Carbon Dioxide 21 mmol/L (22-29); Chloride 102 mmol/L (98-107); Globulin 3.6 g/dL (1.3-4.6); Glucose 101 mg/dL (65-115); Lipase 29 U/L (13-60); Osmolality Calculated 283 mOsm/kg (285-295); Potassium 3.8 mmol/L (3.5-5.1); Sodium 137 mmol/L (136-145); Total Protein 7.8 g/dL (6.6-8.7)
[2025-08-29 11:17] VITALS: RESP 20; O2SAT 100
[2025-08-29] MEDS: morphine 4 mg/mL SDV 1 mL IVP (11:17)
[2025-08-29] MEDS: ondansetron 2 mg/ML SDV 2 mL 4 MG IVP (11:17)
[2025-08-29] MEDS: iohexol 350 mg/mL 500 mL Btl (per mL) IV (11:26)
[2025-08-29 11:27] LABS: Glucose Urine UA Negative (Normal); Nitrate Urine Negative (Negative); Specific Gravity, Urine 1.018 (1.005-1.030)
[2025-08-29 11:29] LABS: Add Urine Microscopic? YES
[2025-08-29 12:24] VITALS: RESP 18
[2025-08-29] MEDS: morphine 4 mg/mL SDV 1 mL 2 MG IVP (12:24)
[2025-08-29 12:37] VITALS: BP 98/66; PULSE 80; O2SAT 99
== END 2025-08-29 12:39 | disposition home or self-care (01) ==
PROVIDERS: Emergency Provider Physician Assistant; PCP Internal Medicine
DX: R10.9 Unspecified abdominal pain (principal)
CPT/HCPCS: 36415; 74177; 80053; 81001; 83690; 85025; 96374; 96375; 96376; 99285; J2270; J2405; J7040